=== PATIENT | female | born 1995 | race American Indian/Alaskan Native ===

== ENCOUNTER 2017-02-17 12:19 | Emergency (ER) | payer SELFPAY ==
[2017-02-17 12:51] VITALS: BP 156/93
[2017-02-17] MEDS ORDERED: TRIPLE ANTIBIOTIC TP ONE (15:15)
[2017-02-17] MEDS ORDERED: TYLENOL PO ONE (15:15)
--- NOTE | 2017-02-17 15:19 | Emergency Department Report ---
HPI - General Chief Complaint: Wound/Laceration Time Seen by Provider: 02/17/17 14:57 - HPI HPI: She is a 21-year-old female who presents to ED complaining of abrasion to left butt cheek. Patient states she was at home earlier today and got on a broken glass and had some minimal bleeding. Patient states stop of the blood with some pressure. Patient states her tetanus shots are up-to-date. Patient denies fevers/chills/nausea/vomiting/any other problems. ED Past Medical Hx - Past Medical History Additional medical history: OBESITY - Surgical History Hx Cholecystectomy: Yes - Social History Smoking Status: Current Every Day Smoker Substance Use Type: Alcohol - Medications Home Medications: Home Medications Medication Instructions Recorded Confirmed Last Taken Type Acetaminophen [Acetaminophen ER 650 mg PO Q8HR PRN #30 tablet.er 02/17/17 Unknown Rx TAB] Neomycin Johnson/Bacitrac Zn/Poly 1 applic TP TID #1 tube 02/17/17 Unknown Rx [Triple Antibiotic Ointment] ED Review of Systems ROS: Stated complaint: LAC TO BUTTOCKS FELL ON GLASS Other details as noted in HPI Constitutional: denies: chills, fever Eyes: denies: eye pain, eye discharge, vision change ENT: denies: ear pain, throat pain Respiratory: denies: cough, shortness of breath, wheezing Cardiovascular: denies: chest pain, palpitations Endocrine: no symptoms reported Gastrointestinal: denies: abdominal pain, nausea, vomiting, diarrhea Genitourinary: denies: urgency, dysuria, discharge Musculoskeletal: denies: back pain, joint swelling, arthralgia Skin: denies: rash, lesions Neurological: denies: headache, weakness, numbness, paresthesias, confusion, abnormal gait Psychiatric: denies: anxiety, depression, suicidal thoughts Hematological/Lymphatic: denies: easy bleeding, easy bruising Physical Exam - Physical Exam Vital Signs: Vital Signs 02/17/17 12:48 Temperature 98.6 F Pulse Rate 73 Respiratory 17 Rate Blood Pressure 156/93 O2 Sat by Pulse 100 Oximetry Physical Exam: GENERAL: Alert and oriented x3, no apparent distress, Normal Gait, atraumatic. HEAD: Head is normocephalic and a-traumatic. EYES: Extra ocular muscles are intact. Pupils are equal, round, and reactive to light and accommodation. NECK: Supple. Non edematous, No carotid bruits. No lymphadenopathy or thyromegaly. LUNGS: Symetrical with respiration, No wheezing, no rales or crackles, CTAB. HEART: S1, S2 present, regular rate and rhythm without murmur, no rubs, no gallops. ABDOMEN: No organomegaly was noted,Positive bowel sounds, soft, and non- distended. . Nontender to palpation on all Quadrants, NO CVA tenderness. BUTTOCK: 0.5 superficial minor laceration on the left lateral buttock check, nonedematous, no bleeding. Nontender to palpation EXTREMITIES/MUSCULOSKELETAL: No cyanosis, clubbing, rash, lesions or edema. Full ROM bilaterally. UE/LE Pulses 2+ bilaterally. LE and UE 5+ strength bilaterally NEUROLOGIC: No focal Deficit, Cranial nerves II through XII are grossly intact. No loss of sensation, PSYCHIATRIC: Mood is congruent with affect, denies suicidal or homicidal ideations. SKIN: Warm and dry, No lesions, No ulceration or induration present. ED Course Vital Signs 02/17/17 12:48 Temperature 98.6 F Pulse Rate 73 Respiratory 17 Rate Blood Pressure 156/93 O2 Sat by Pulse 100 Oximetry ED Medical Decision Making - Medical Decision Making 21-year-old female presents with laceration to buttocks ED course: Patient received some one dose of Tylenol. Laceration very superficial therefore no suture needed. Laceration was cleaned with Betadine, probably dressed with antibiotic ointment and covered with a 4 x 4 and tape Discussed the patient to change dressing every day keep area dry. Patient to take couple days of antibiotics. Course of follow-up with a primary care physician. Discussed wound is superficial and does not sutures and with no on its own. Critical care attestation.: If time is entered above; I have spent that time in minutes in the direct care of this critically ill patient, excluding procedure time. ED Disposition Clinical Impression: Abrasion, Superficial laceration Disposition: DISCHARGED TO HOME OR SELFCARE Is pt being admited?: No Does the pt Need Aspirin: No Condition: Stable Instructions: Abrasion (ED), Laceration (ED), Acute Wound Care (ED) Prescriptions: Acetaminophen [Acetaminophen ER TAB] 650 mg PO Q8HR PRN #30 tablet.er PRN Reason: Pain Neomycin Johnson/Bacitrac Zn/Poly [Triple Antibiotic Ointment] 1 applic TP TID #1 tube Referrals: PRIMARY CARE, [Primary Care Provider] - 3-5 Days Forms: Work/School Release Form(ED) Time of Disposition: 15:24
== END 2017-02-17 15:47 | disposition home or self-care (01) ==
LOC: ED 12:19
DX: S31.821A Laceration without foreign body of left buttock, initial encounter (principal); E66.9 Obesity, unspecified; F17.200 Nicotine dependence, unspecified, uncomplicated; X58.XXXA Exposure to other specified factors, initial encounter; Y93.89 Activity, other specified; Y99.9 Unspecified external cause status; Y92.89 Other specified places as the place of occurrence of the external cause
CPT/HCPCS: 99283; A6250

== ENCOUNTER 2017-03-22 00:04 | Emergency (ER) | payer OTHER ==
[2017-03-22] MEDS ORDERED: MOTRIN PO ONE (04:49)
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
--- NOTE | 2017-03-22 06:09 | XRay Report ---
FINAL REPORT PROCEDURE: XR SPINE CERVICAL 2-3V TECHNIQUE: Cervical spine radiographs, minimum of four views, including AP, lateral and bilateral oblique projections. HISTORY: tenderness COMPARISON: No prior studies are available for comparison. FINDINGS: Prevertebral soft tissues: Normal. Alignment: Normal. Vertebral body heights/Disk spaces: Normal. Fracture(s): None. Neural foramina: Normal. Facets: Normal. Bone mineralization: Normal. IMPRESSION: Normal Examination.
[2017-03-22 06:23] VITALS: BP 139/85
== END 2017-03-22 06:24 | disposition home or self-care (01) ==
LOC: ED 00:04
DX: S13.4XXA Sprain of ligaments of cervical spine, initial encounter (principal); S16.1XXA Strain of muscle, fascia and tendon at neck level, initial encounter; F17.200 Nicotine dependence, unspecified, uncomplicated; V49.49XA Driver injured in collision with other motor vehicles in traffic accident, initial encounter; Y93.9 Activity, unspecified; Y92.9 Unspecified place or not applicable; Y99.9 Unspecified external cause status
CPT/HCPCS: 72040; 99283